=== PATIENT | male | born 1940 | race Caucasian/White ===

== ENCOUNTER 2020-08-10 17:40 | Emergency (ER) | payer MEDICARE, OTHER ==
--- NOTE | 2020-08-10 19:31 | EDM.PDOC ---
ED HPI GENERAL MEDICAL PROBLEM - General Chief Complaint: CPR in Progress Stated Complaint: CODE BLUE Time Seen by Provider: 08/10/20 18:22 Source of Information: Reports: EMS - History of Present Illness INITIAL COMMENTS - FREE TEXT/NARRATIVE: Elderly male brought to the ER by EMS in full arrest with Ori performing CPR and ET tube in place. Patient reportedly found in his pickup at [facility] and was slumped over the steering wheel and unresponsive when 911 called. Police applied AED, no shock was advised but they began chest compressions until medics arrived. No family available. Arrested approximately 30 minutes prior to arrival in the ER. - Related Data Allergies Allergy/AdvReac Type Severity Reaction Status Date / Time Unable to Assess Allergy Unverified 08/10/20 18:53 Home Meds: Home Meds . [Unable to Verify Home Med List] 08/10/20 [History] Review of Systems - Review of Systems Review Of Systems: Unable To Obtain Reason Not Obtained: unresponsive, pt in full arrest ED EXAM, GENERAL - Physical Exam Exam: See Below (Elderly male arrives in full arrest, unresponsive. Ori performing compressions and ET tube in place with medic performing ventila tions.) Eye Exam: Bilateral Eye: Other (Fixed and dialated) Nose: No Blood Head: Atraumatic, Normocephalic Respiratory/Chest: Normal Breath Sounds Cardiovascular: Other (No heart sounds noted on exam, note PEA/Asystole on the cardiac care nurse between compressions.) GI/Abdominal: Soft Neurological: Unresponsive Skin Exam: Warm, Pallor Course - Vital Signs Text/Narrative:: Patient arrived with in full arrest. He had been given 3 doses of Epi by paramedics in the field. AED advised no shocks. Compression started and he was intubated and brought to the ER. [employer]ER saw patient on arrival. Determined that he had now had CPR in progress with ALS for about 45 minutes. Pupils were fixed and dialated. Time of called at 1748. Cause of Sudden most likely Cardiac Arrest. Family contacted and postmortem cares performed. Body left with home. Departure - Departure Time of Disposition: 17:48 Disposition: 20 Preliminary Cause of *Q: Cardiac Arrest Clinical Impression: Cardiac arrest - Discharge Information Referrals: PCP,Unknown [Primary Care Provider] - Forms: ED Department Discharge Additional Instructions: -Release body to director product -See protocol
== END 2020-08-10 17:48 | disposition expired ==
LOC: VM.ED 17:40
DX: I46.9 Cardiac arrest, cause unspecified (principal)
CPT/HCPCS: 92950; 99285-25